=== PATIENT | female | born 1940 | race Caucasian/White ===

== ENCOUNTER 2016-06-20 18:36 | Emergency (ER) | payer MEDICARE, BC ==
--- NOTE | ~2016-06-20 | CR253 ---
[facility] A Service of [facility] & [facility] RADIOLOGY TEXT RESULTS PATIENT: NORMA LEUNG LOCATION: CFTX : 40 UNIT #: [id number] AGE: [address]: Loly Benoit APRN SEX: F ORDER DR: [id number] [facility] [address] [place], [place] [address] [id number] E MR#: [id number] Acc #: [id number] NAME: NORMA LEUNG : 1940 SEX: F STUDY DATE/TIME: 06/20/2016 18:28 UNIT: [facility] ROOM: STUDY DESCRIPTION: CR Tibia and Fibula 2 Views Rt Attending Physician: Loly Benoit A.P.R.N. Ordering Physician: Ed Lance Murcia M.D. Primary Care Physician: Dutch Dumont M.D. MEDICAL IMAGING REPORT This report is preliminary unless electronic signature is present EXAM Right tibia and fibula, 3 views, 06/20/2016 HISTORY Right lower extremity pain and swelling along anterior aspect after bumping into a chair yesterday. FINDINGS There is no evidence of fracture, dislocation, or radiopaque foreign body. IMPRESSION Normal tibia and fibula. Dictated by... Leandro Roth M.D. THIS IS AN ELECTRONICALLY VERIFIED REPORT Leandro Roth M.D. at 06/21/2016 10:28 AM BOBBI/allyson TD: 06/20/2016 22:40 JOB #: [id number] MEDICAL IMAGING REPORT Page 1 of 1 COPY
[~2016-06-20 18:36] MED LIST: ACTOS; ACTOS15 MG PO; ADVAIR 1001 DISK W/D; AMIODARONE PO; AMLODIPINE BESYL5 MG PO; ASPIRIN; AZOR 10/40 MG T1 TAB PO; BABY ASA 81MG; CARVEDILOL3.125 MG PO; CELEBREX PO; CLOPIDOGREL75 MG PO; DDAVP 0.01% NASA5 ML; DDAVP0.1 MG PO; DESMOPRESSIN 0.1 MG/ML; DESMOPRESSIN A0.1 M1 PO; DESMOPRESSIN A0.1 MG PO; EFFEXOR; EFFEXOR PO; EFFEXOR-XR150 MG PO; EFFEXOR-XR75 MG PO; FERROUS GL325 ( 37.5 PO; FLEXERIL10 MG PO; GLUCOPHAGE500 MG PO; GLUCOVANCE 5/501 TA1; HYDRALAZINE HCL25 MG PO; HYOSCYAMINE; IMDUR-ER30 M1 PO; ISOSORBIDE DINI30 MG PO; JANTOVEN2.5 MG PO; K-DUR20 ME1 PO; K-DUR20 ME2 PO; KCL PO; LASIX; LASIX20 MG PO; LASIX80 MG PO; LEVAQUIN PO; LEVOFLOXACIN500 MG PO; LIPITOR PO; LIPITOR40 MG PO; LOPRESSOR PO; LOTREL; LOTREL 10/20 MG1 CAP PO; MAGOX 400400 MG PO; METFORMIN HCL500 M1 PO; METOPROLOL TAR25 MG PO; MOBIC; MYSOLINE50 MG DOB; NAPROSYN500 MG PO; NEURONTIN300 MG PO; NEURONTIN600 MG PO; PLAVIX; PLAVIX PO; PRECOSE50 MG; PRO-AMATINE5 MG PO; VASERETIC 5-12.1 TAB PO; VENLAFAXINE HC150 M1 PO; VITAMIN D35000 UNI1 PO; VYTORIN 10/80 T1 TAB PO; XARELTO15 MG PO; [UNRECOGNIZED DRUG - OTHER]
== END 2016-06-20 19:25 | disposition home or self-care (01) ==
LOC: CFTX 18:36
DX: S80.11XA Contusion of right lower leg, initial encounter (principal); E11.9 Type 2 diabetes mellitus without complications; I10 Essential (primary) hypertension; F32.9 Major depressive disorder, single episode, unspecified; W22.8XXA Striking against or struck by other objects, initial encounter; Y92.009 Unspecified place in unspecified non-institutional (private) residence as the place of occurrence of the external cause
CPT/HCPCS: 73590; 99283